=== PATIENT | male | born 1970 | race Two or more races ===

== ENCOUNTER 2018-01-21 13:12 | Emergency (ER) | payer SELFPAY ==
[~2018-01-21] VITALS: Ht 182.9 cm; Wt 79.4 kg
[~2018-01-21 13:12] MED LIST: IBUPROFEN600 MG ORAL; NKM; NORCO 10-325 T1 EACH ORAL
[2018-01-21 13:50] VITALS: BP 134/79
--- NOTE | 2018-01-21 18:57 | Emergency Room Report ---
History of Present Illness General Chief Complaint: Lower Back Pain or Injury Source: Patient Present Illness Allergies: Coded Allergies: No Known Allergies (Unverified , 12/06/13) Nursing Documentation-[facility] Past Medical History: No Stated History Physical Exam Vital Signs Date Time Temp Pulse Resp B/P (MAP) Pulse Ox O2 Delivery O2 Flow Rate FiO2 01/21/18 13:35 99.3 94 18 138/101 98 Room Air 99.3 Medical Decision Making Diagnostic Impression: Primary Impression: Low back pain ER Course Patient left without being seen Last Vital Signs Date Time Temp Pulse Resp B/P (MAP) Pulse Ox O2 Delivery O2 Flow Rate FiO2 01/21/18 13:50 134/79 01/21/18 13:50 99.3 18 98 Room Air 99.3 01/21/18 13:35 94 Status: unchanged Disposition: LEFT W/OUT BEING SEEN Condition: Stable Referrals: NOT CHOSEN JENNIFER/,REFERRING (PCP) MICHI MINER M.D. Jan 21, 2018 18:57
== END 2018-01-21 15:07 | disposition left against medical advice (07) ==
LOC: EMR 14:10
DX: M54.5 Low back pain (principal)
CPT/HCPCS: 99281